=== PATIENT | male | born 1955 | race Caucasian/White ===

== ENCOUNTER 2021-12-12 09:07 | Emergency (ER) | payer BC ==
[~2021-12-12] VITALS: Ht 177.8 cm; Wt 122.4 kg
[2021-12-12 11:00] LABS: URINE BILIRUBIN - DIPSTICK NEGATIVE (NEGATIVE); URINE BLOOD DIPSTICK NEGATIVE (NEGATIVE); URINE COLOR YELLOW; URINE GLUCOSE - DIPSTICK NEGATIVE (NEGATIVE); URINE KETONE NEGATIVE (NEGATIVE); URINE LEUK ESTERASE NEGATIVE (NEGATIVE); URINE PH 5.5 (4.5-8.0); URINE PROTEIN - DIPSTICK NEGATIVE (NEG-TRACE); URINE UROBILINOGEN - DIPSTICK 0.2 E.U./dL (0.2)
[2021-12-12 11:02] LABS: HEMATOCRIT 45.5 % (39.0-50.0); HEMOGLOBIN 14.7 g/dl (14.0-18.0); IMMATURE GRANULOCYTES 0.2 % (0.0-5.0); MEAN CELL VOLUME 89.2 fL CALC (80.0-100.0); MEAN CORPUSCULAR HGB 28.8 pG CALC (26.0-32.0); MEAN CORPUSCULAR HGB CONC 32.3 g/dL CAL (32.0-36.0); NEUT# 10.6 thou/uL (1.82-7.42); RED BLOOD COUNT 5.1 mill/uL (4.70-6.10); RED CELL DISTRI WIDTH 13.2 % (11.5-15.5)
[2021-12-12 11:04] LABS: URINE NITRITE - DIPSTICK NEGATIVE (Negative)
[2021-12-12 11:12] LABS: ACT PARTIAL THROMBO TIME 26.8 SECONDS (20.0-32.5); PROTHROMBIN TIME 10.7 SECONDS (9.0-12.5)
[2021-12-12 11:14] LABS: ALBUMIN 4.6 g/dL (3.2-5.0); ALKALINE PHOSPHATASE 89 u/l (38-126); AMYLASE 65 u/l (30-110); ANION GAP 13 (6-22 (CALC)); BILIRUBIN, TOTAL 0.7 mg/dL (0.0-1.4); BUN 16 mg/dL (8-23); BUN/CREATININE RATIO 18 (12-20 (CALC)); CARBON DIOXIDE 29 mmol/l (22-30); CHLORIDE 100 mmol/l (95-108); CREATININE 0.9 mg/dL (0.7-1.3); GFR > 60 ML/MIN (>=60 (CALC)); GFR FOR AFR.AMER. > 60 ML/MIN (>=60 (CALC)); LIPASE 74 u/l (23-300); SGOT/AST 29 u/l (19-48); SODIUM 138 mmol/l (137-146); TOTAL PROTEIN 8.2 g/dL (6.3-8.2)
[2021-12-12] MEDS ORDERED: PROTONIX40 M2 PO (12:57)
== END 2021-12-12 13:01 | disposition home or self-care (01) | DRG 392 ==
LOC: ED 09:07
DX: R10.11 Right upper quadrant pain (principal); I10 Essential (primary) hypertension
CPT/HCPCS: Q9967

== ENCOUNTER 2022-04-16 19:53 | Inpatient (IN) | payer BC ==
[~2022-04-16] VITALS: Ht 177.8 cm; Wt 130.0 kg
[~2022-04-16 19:53] MED LIST: PROTONIX40 M2 PO
--- NOTE | 2022-04-16 20:27 | NUR ---
PT TRANSPORTED TO ER RM 14 VIA WC
[2022-04-16 21:14] LABS: HEMATOCRIT 51.1 % (39.0-50.0); HEMOGLOBIN 16.7 g/dl (14.0-18.0); IMMATURE GRANULOCYTES 0.2 % (0.0-5.0); MEAN CELL VOLUME 87.7 fL CALC (80.0-100.0); MEAN CORPUSCULAR HGB 28.6 pG CALC (26.0-32.0); MEAN CORPUSCULAR HGB CONC 32.7 g/dL CAL (32.0-36.0); NEUT# 12.23 thou/uL (1.82-7.42); RED BLOOD COUNT 5.83 mill/uL (4.70-6.10)
[2022-04-16 21:25] LABS: ALBUMIN 4.8 g/dL (3.2-5.0); ALKALINE PHOSPHATASE 119 u/l (38-126); AMYLASE 65 u/l (30-110); ANION GAP 19 (6-22 (CALC)); BILIRUBIN, TOTAL 0.9 mg/dL (0.0-1.4); BUN 20 mg/dL (8-23); BUN/CREATININE RATIO 19 (12-20 (CALC)); CARBON DIOXIDE 24 mmol/l (22-30); CHLORIDE 99 mmol/l (95-108); CREATININE 1.1 mg/dL (0.7-1.3); GFR FOR AFR.AMER. > 60 ML/MIN (>=60 (CALC)); GFR OTHER RACES > 60 ML/MIN (>=60 (CALC)); LIPASE 60 u/l (23-300); POTASSIUM 3.9 mmol/l (3.5-5.1); SGOT/AST 28 u/l (19-48); SODIUM 139 mmol/l (137-146); TOTAL PROTEIN 8.9 g/dL (6.3-8.2)
--- NOTE | 2022-04-16 21:27 | NUR ---
NAUSEA BUT NO VOMITING DENIED CONSTIPATION.W/P/D SKIN NO REBOUND TENDERNESS LAST FORMED BM 2 HRS PRIOR TO ARRIVAL TO ER
[2022-04-16 21:36] LABS: URINE BLOOD DIPSTICK NEGATIVE (NEGATIVE); URINE COLOR YELLOW; URINE GLUCOSE - DIPSTICK NEGATIVE (NEGATIVE); URINE KETONE TRACE mg/dL (NEGATIVE); URINE LEUK ESTERASE NEGATIVE (NEGATIVE); URINE PH 5.5 (4.5-8.0); URINE PROTEIN - DIPSTICK 100 mg/dL (NEG-TRACE); URINE SPECIFIC GRAVITY >=1.030; URINE UROBILINOGEN - DIPSTICK 0.2 E.U./dL (0.2)
[2022-04-16 21:37] LABS: MYOGLOBIN 59 ng/mL (0 - 121)
[2022-04-16 21:38] LABS: URINE BILIRUBIN - DIPSTICK SMALL (NEGATIVE); URINE NITRITE - DIPSTICK NEGATIVE (Negative)
[2022-04-16] MEDS ORDERED: LISINOP/HCTZ1 TA2 PO (21:51)
[2022-04-16] MEDS ORDERED: ATORVASTATIN CA40 MG PO (21:51)
[2022-04-16] MEDS ORDERED: ZOLOFT50 MG PO (21:52)
--- NOTE | 2022-04-16 22:34 | NUR ---
PT IS BETTER PAIN IS RESOLVING FEELING OF BEING GASEOUS AND BLOATED PT STATES.W/P/D SKIN HYDRATION FLUIDS BEGUN
[2022-04-17] VITALS (16 sets, daily range): BP systolic 105–165; BP diastolic 76–89
--- NOTE | 2022-04-17 00:33 | NUR ---
REMEDICATED FOR PAIN AND NAUSEA.W/P/D SKIN
--- NOTE | 2022-04-17 00:48 | NUR ---
REPORT RECEIVED FROM Andres PERDOMO RN
--- NOTE | 2022-04-17 00:48 | NUR ---
PHONE REPORT SILVIO FERNANDEZ [facility] NURSE
--- NOTE | 2022-04-17 00:55 | NUR ---
PT HAS NO N/V OR D THIS ER STAY PAIN IN RESOLVED. PT TRANSPORTED TO [facility] RM 278 VIA TELE AND STRETCHER IN STABLE CONDITION.
--- NOTE | 2022-04-17 01:05 | NUR ---
PATIENT ARRIVED ON FLOOR VIA STRETCHER ACCOMPANIED BY Robson PERDOMO RN. PATIENT AMBULATED TO BED WITH NO ASSITANCE. ASSESSMENT COMPLETED A THIS TIME. NORMAL HEART SOUNDS WITH TELE IN PLACE CURRENTLY SR 98. CLEAR LUNG SOUNDS. HYPO ACTIVE BOWEL SOUNDS. SKIN INTACT. #20 IN LAC FLUSHE DNA DPATENT, WITH NORMAL SALINE RUNNING AT 125 NO CURENT COMPLAINTS A THIS TIME. PLAN OF CARE REVIWED WITH PATIENT, CALL LIGHT AND BEDSIDE TABLE WITHN REACH.
--- NOTE | 2022-04-17 04:05 | NUR ---
PATIENT ASSISTED TO THE BATHROOM AT THIS TIME.
[2022-04-17 06:48] LABS: MEAN CELL VOLUME 87.8 fL CALC (80.0-100.0); MEAN CORPUSCULAR HGB 28.5 pG CALC (26.0-32.0); MEAN CORPUSCULAR HGB CONC 32.5 g/dL CAL (32.0-36.0); RED BLOOD COUNT 5.01 mill/uL (4.70-6.10); RED CELL DISTRI WIDTH 13.1 % (11.5-15.5)
[2022-04-17 06:51] LABS: HEMOGLOBIN 14.3 g/dl (14.0-18.0)
[2022-04-17 06:58] LABS: ANION GAP 13 (6-22 (CALC)); BUN 18 mg/dL (8-23); BUN/CREATININE RATIO 20 (12-20 (CALC)); CARBON DIOXIDE 23 mmol/l (22-30); CHLORIDE 106 mmol/l (95-108); CREATININE 0.9 mg/dL (0.7-1.3); GFR FOR AFR.AMER. > 60 ML/MIN (>=60 (CALC)); GFR OTHER RACES > 60 ML/MIN (>=60 (CALC)); POTASSIUM 3.6 mmol/l (3.5-5.1); SODIUM 139 mmol/l (137-146)
--- NOTE | 2022-04-17 09:07 | NUR ---
PT RESTING IN BED A&O X3. STATES PAIN IN ABD, CRAMPING 03/05. MEDICATED. SEE EMAR. PT NPO. PT EDUCATED ON PAIN MEDICATION. ASSESSMENT COMPLETED. BOWEL SOUNDS ACTIVE X4. ABD IS FIRM, NON TENDER. PT ON TELE MONITOR CONTINOUS MONITORING PER ED. IVF INFUSING PER EMAR. IV LAC 20G FLUSHED. PATENT. PT STATES LAST BM: 04/16/22. FALL/SAFTEY PRECAUTION IN PLACE. CALL LIGHT WITHIN REACH
--- NOTE | 2022-04-17 12:09 | NUR ---
PT IN XRAY
--- NOTE | 2022-04-17 14:50 | NUR ---
SURGEON AT BEDSIDE
--- NOTE | 2022-04-17 15:01 | NUR ---
AT BEDSIDE WITH PATIENT. PLACED NG TUBE IN RIGHT NARIS TO CONT SUCTION. PATIENT BEING TAKEN TO OR. ORDERS GIVEN TO D/C CT, PER .
--- NOTE | 2022-04-17 15:08 | NUR ---
OR NURSE TRANSPORTED PT TO OR FOR PROCEDURE. NG TUBE INTACT. FAMILY MEMBER AT BEDSIDE. ANTIBIOTIC MEDICATION GIVEN SEE EMAR. FALL/SAFTEY PRECAUTION IN PLACE.
--- NOTE | 2022-04-17 17:39 | NUR ---
OR REPORT CALL PT TRANSFERRED TO ICU FOR POST OBS.
[2022-04-17 18:08] LABS: HEMATOCRIT 46.2 % (39.0-50.0); HEMOGLOBIN 14.6 g/dl (14.0-18.0); IMMATURE GRANULOCYTES 0.2 % (0.0-5.0); MEAN CELL VOLUME 91.1 fL CALC (80.0-100.0); MEAN CORPUSCULAR HGB 28.8 pG CALC (26.0-32.0); MEAN CORPUSCULAR HGB CONC 31.6 g/dL CAL (32.0-36.0); NEUT# 13.56 thou/uL (1.82-7.42); RED BLOOD COUNT 5.07 mill/uL (4.70-6.10); RED CELL DISTRI WIDTH 13.5 % (11.5-15.5)
[2022-04-17 18:19] LABS: ALKALINE PHOSPHATASE 76 u/l (38-126); ANION GAP 14 (6-22 (CALC)); BILIRUBIN, TOTAL 0.7 mg/dL (0.0-1.4); BUN 21 mg/dL (8-23); BUN/CREATININE RATIO 21 (12-20 (CALC)); CARBON DIOXIDE 22 mmol/l (22-30); CHLORIDE 110 mmol/l (95-108); GFR FOR AFR.AMER. > 60 ML/MIN (>=60 (CALC)); GFR OTHER RACES > 60 ML/MIN (>=60 (CALC)); POTASSIUM 3.9 mmol/l (3.5-5.1); SGOT/AST 22 u/l (19-48); SODIUM 143 mmol/l (137-146)
[2022-04-17 18:32] LABS: ALBUMIN 3.6 g/dL (3.2-5.0); TOTAL PROTEIN 6.7 g/dL (6.3-8.2)
--- NOTE | 2022-04-17 21:31 | NUR ---
ASSESSMENT COMPLETED. LUNG SOUNDS CLEAR. BOWEL SOUNDS ACTIVE IN RLQ, RUQ, AND LUQ, BOWEL SOUNDS ABSENT IN LLQ. C/O PAIN TO THE ABDOMEN 03/05, 0.5 MG DILAUDID GIVEN, PT STATES THE PAIN IS BETTER. UNABLE TO VISUALIZE INCISION R/T DRESSING. DRESSINGS CLEAN, DRY, AND INTACT. ROWAN DRAINING BLOODY OUTPUT, 95 ML TOTAL AT THIS TIME. TRAYLOR PATENT AND DRAINING PALE YELLOW URINE, 92 ML TOTAL AT THIS TIME. NG TO LOW CONTINUOUS SUCTIONS, 50 ML BROWN OUTPUT AT THIS TIME. SAFETY PRECAUTIONS IN PLACE. SCDS ON.
--- NOTE | 2022-04-17 22:15 | NUR ---
ANOTHER 0.5 MG DILAUDID GIVEN AROUND 2150. PT STATES THAT IT DID HELP THE PAIN. PT RATES PAIN 3/10 AT THIS TIME.
[2022-04-18] VITALS (40 sets, daily range): BP systolic 11–145; BP diastolic 52–100
--- NOTE | 2022-04-18 02:07 | NUR ---
PT RESTING COMFORTABLY AT THIS TIME. MINIMAL OUTPUT FROM NGT, 50 ML TOTAL. ROWAN DRAINAGE HAS SLOWED DOWN, 105 ML TOTAL. URINE OUTPUT TOTAL AT THIS TIME 270 ML.
--- NOTE | 2022-04-18 03:16 | NUR ---
CALLED AND WAS GIVEN AN UPDATE ON PT CONDITION.
[2022-04-18 03:37] LABS: HEMATOCRIT 43.5 % (39.0-50.0); HEMOGLOBIN 13.8 g/dl (14.0-18.0)
--- NOTE | 2022-04-18 05:46 | NUR ---
BLADDER SCAN COMPLETED R/T PT COMPLAINT OF TENDERNESS OVER THE BLADDER AND LOW URINE OUTPUT. BLADDER SCAN SHOWED 000 ML. TOTAL URINE OUTPUT AT THIS TIME 325 ML.
[2022-04-18 06:31] LABS: ANION GAP 11 (6-22 (CALC)); BUN 22 mg/dL (8-23); BUN/CREATININE RATIO 20 (12-20 (CALC)); CARBON DIOXIDE 23 mmol/l (22-30); CHLORIDE 113 mmol/l (95-108); CREATININE 1.1 mg/dL (0.7-1.3); GFR FOR AFR.AMER. > 60 ML/MIN (>=60 (CALC)); GFR OTHER RACES > 60 ML/MIN (>=60 (CALC)); MAGNESIUM 1.8 mg/dL (1.6-2.3); POTASSIUM 3.9 mmol/l (3.5-5.1); SODIUM 144 mmol/l (137-146)
[2022-04-18 06:53] LABS: HEMATOCRIT 41.4 % (39.0-50.0); HEMOGLOBIN 13.1 g/dl (14.0-18.0); IMMATURE GRANULOCYTES 0.2 % (0.0-5.0); MEAN CORPUSCULAR HGB 28.8 pG CALC (26.0-32.0); MEAN CORPUSCULAR HGB CONC 31.6 g/dL CAL (32.0-36.0); NEUT# 7.16 thou/uL (1.82-7.42); RED BLOOD COUNT 4.55 mill/uL (4.70-6.10); RED CELL DISTRI WIDTH 13.7 % (11.5-15.5)
--- NOTE | 2022-04-18 08:46 | NUR ---
Removed folet catheter, patient tolerated well, 100cc clear yellow urine in bag upon removal.
--- NOTE | 2022-04-18 08:48 | NUR ---
koffi drain emptied 80cc sanguineous fluid.
--- NOTE | 2022-04-18 09:14 | NUR ---
Dr Richards contacted for clarification of fluid orders.
--- NOTE | 2022-04-18 09:48 | NUR ---
Notified dr Kitchen of increased koffi drainage. new order received to repeat h&h at 1200.
[2022-04-18 11:53] LABS: HEMATOCRIT 39.1 % (39.0-50.0); HEMOGLOBIN 12.4 g/dl (14.0-18.0)
--- NOTE | 2022-04-18 11:58 | NUR ---
Results of h&h returned, physician notified of new lab values. Awaiting new orders if any forthcoming.
[2022-04-18] MEDS ORDERED: ALBUTEROL108 MCG/AC IN (14:42)
[2022-04-18 19:06] LABS: HEMATOCRIT 36.7 % (39.0-50.0); HEMOGLOBIN 11.4 g/dl (14.0-18.0)
--- NOTE | 2022-04-18 21:17 | NUR ---
PER PT REQUEST, PT ASSISTED OUT OF BED AND UP TO CHAIR. VITAL SIGNS REMAIN STABLE. PT STATES MINIMAL PAIN AT THIS TIME.
--- NOTE | 2022-04-18 22:35 | NUR ---
PT ASSISTED BACK TO BED.
[2022-04-19] VITALS (18 sets, daily range): BP systolic 112–141; BP diastolic 57–83
--- NOTE | 2022-04-19 02:50 | NUR ---
RESPIRATORY CALLED R/T PT HAVING FREQUENT WITNESSED APNEIC EPISODES WHILE SLEEPING. O2 DROPPING LOW 58% ON 5 L N/C. O2 SATS HAVE BEEN 95% OR HIGHER ON 2L WHEN AWAKE.
--- NOTE | 2022-04-19 05:27 | NUR ---
VSS ON VENTURI MASK. TOTAL URINE OUTPUT 250 ML. ROWAN OUTPUT 30 ML. NGT OUTPUT 300 ML.
[2022-04-19 05:47] LABS: HEMATOCRIT 33.7 % (39.0-50.0); HEMOGLOBIN 10.5 g/dl (14.0-18.0); IMMATURE GRANULOCYTES 0.3 % (0.0-5.0); MEAN CELL VOLUME 93.9 fL CALC (80.0-100.0); MEAN CORPUSCULAR HGB 29.2 pG CALC (26.0-32.0); MEAN CORPUSCULAR HGB CONC 31.2 g/dL CAL (32.0-36.0); NEUT# 6.01 thou/uL (1.82-7.42); RED BLOOD COUNT 3.59 mill/uL (4.70-6.10); RED CELL DISTRI WIDTH 13.9 % (11.5-15.5)
[2022-04-19 05:55] LABS: ALKALINE PHOSPHATASE 46 u/l (38-126); ANION GAP 12 (6-22 (CALC)); BILIRUBIN, TOTAL 0.9 mg/dL (0.0-1.4); BUN 22 mg/dL (8-23); BUN/CREATININE RATIO 22 (12-20 (CALC)); CARBON DIOXIDE 22 mmol/l (22-30); CHLORIDE 110 mmol/l (95-108); GFR FOR AFR.AMER. > 60 ML/MIN (>=60 (CALC)); GFR OTHER RACES > 60 ML/MIN (>=60 (CALC)); MAGNESIUM 2.1 mg/dL (1.6-2.3); SGOT/AST 21 u/l (19-48); SODIUM 140 mmol/l (137-146)
[2022-04-19 05:59] LABS: ALBUMIN 2.8 g/dL (3.2-5.0); TOTAL PROTEIN 5.3 g/dL (6.3-8.2)
--- NOTE | 2022-04-19 09:07 | NUR ---
Spoke with Dr Carr about patients decreasing h&h levels, he recommends that we hold the lovenox for the patient and he will consult with Dr Kitchen regarding the patient status, patient awake and alert, c/o minimal pain at this time, no s/s of distres snoted, respirations even and unlabored on room air, patient wishing to try and stay off the supplemental o2 as long as he can tolerate today as he does not wear oxygen at home. PT at bedside assisting patient to the bedside recliner chair for pt therapy.
--- NOTE | 2022-04-19 09:54 | NUR ---
Patient out of bed and walking on unit with pt, patient ambulating without asistance, gait steady, c/o small amount of pain but states that it is bareable when ambulating.
--- NOTE | 2022-04-19 12:23 | NUR ---
Surgeon at bedside, discussing continued treatment with patient, ng/koffi to stay in place at this time, ice chps only, may ambulate with stand by assist in the room, patient to transfer to med/surg for continued treatment.
--- NOTE | 2022-04-19 14:08 | NUR ---
RECEIVE REPORT PATIENT FROM ICU. REPORT FROM [facility] ICU NURSE. PT ALERT AND ORIENTED X3. ACCOMPANIE BY FAMILY MEMBER. PATIENT WITH NGT IN THE LEFT NOSTRIL. WHICH IS CONNECTED TO INTERMITTENT SUCTION ACCORDING MEDICAL ORDER.PATIENT IS EDUCATED ABOUD MEDICATIONS AND NURSING PLAN. PT AND FAMILY MEMBER REFER UNDERSTAND. SAFETY AND FALL PRECAUTIONS IN PLACE. CALL LIGHT WITHIN REACH.
--- NOTE | 2022-04-19 16:01 | NUR ---
PATIENT RESTING IN BED. STABLE AT THIS TIME.
--- NOTE | 2022-04-19 19:10 | NUR ---
REPORT RECEIVED FROM Kirsten CEBALLOS RN
--- NOTE | 2022-04-19 21:40 | NUR ---
PATIENT WITH ABDOMINAL BINDER, REFUSES TO TAKE IF OFF A THIS TIME. STATES HIS DRESSING CHANGE WAS LUIZ TODAY AND IT HELPS WIHT THE PAIN. SCDS IN PLACE. NG TUBE TO LOW CONTINOUS SUCCION.
[2022-04-20] VITALS (9 sets, daily range): BP systolic 103–168; BP diastolic 58–86
--- NOTE | 2022-04-20 03:50 | NUR ---
FINANCIAL AUDITOR Aurelio BARRY IN TO OBTAIN MORNING LABS.
[2022-04-20 05:52] LABS: HEMATOCRIT 32.6 % (39.0-50.0); HEMOGLOBIN 10.3 g/dl (14.0-18.0); IMMATURE GRANULOCYTES 0.5 % (0.0-5.0); MEAN CELL VOLUME 92.1 fL CALC (80.0-100.0); MEAN CORPUSCULAR HGB 29.1 pG CALC (26.0-32.0); MEAN CORPUSCULAR HGB CONC 31.6 g/dL CAL (32.0-36.0); NEUT# 4.86 thou/uL (1.82-7.42); RED BLOOD COUNT 3.54 mill/uL (4.70-6.10); RED CELL DISTRI WIDTH 13.7 % (11.5-15.5)
--- NOTE | 2022-04-20 06:02 | NUR ---
ANTIBIOTIC HUNG AT THIS TIME. #20 IN RAC INFILTRATED AND REMOVED
[2022-04-20 07:24] LABS: ALKALINE PHOSPHATASE 58 u/l (38-126); ANION GAP 8 (6-22 (CALC)); BUN 16 mg/dL (8-23); BUN/CREATININE RATIO 16 (12-20 (CALC)); CARBON DIOXIDE 25 mmol/l (22-30); CHLORIDE 111 mmol/l (95-108); GFR FOR AFR.AMER. > 60 ML/MIN (>=60 (CALC)); GFR OTHER RACES > 60 ML/MIN (>=60 (CALC)); MAGNESIUM 2.1 mg/dL (1.6-2.3); POTASSIUM 3.7 mmol/l (3.5-5.1); SGOT/AST 17 u/l (19-48); SODIUM 141 mmol/l (137-146); TOTAL PROTEIN 5.9 g/dL (6.3-8.2)
[2022-04-20 07:25] LABS: BILIRUBIN, TOTAL 0.5 mg/dL (0.0-1.4)
--- NOTE | 2022-04-20 08:32 | NUR ---
RECIEVED REPORT. PT RESTING IN SEMI FOWLERS POSITION. PT A/OX3. ASSESSMENT COMPLETED. RESPIRATIONS EVEN AND UNLBAORED ON ROOM AIR. LUNG SOUNDS CLEAR. HEART RHYTHM NORMAL. BOWEL SOUNDS ACTIVE. PT REPORTS LOOSE BROWN BM THIS MORNING.#20G LAC INFUSING WITH IVF PER ORDER, SITE PATENT. NG TUBE TO LEFT NARE NOTED, CONT LOW SUCTION.ROWAN DRAIN TO LEFT ABD TO BE EMPTIED, BLOOD OUTPUT NOTED.ABD DRESSING REMAINS CDI WITH ABD BINDER . PT COMPLAINS OF 5/10 ABD PAIN. PT TO BE MEDICATED PER EMAR. PT DENIES OF ANY ADDITIONAL NEEDS AT THIS TIME. ALL SAFETY PRECAUTIONS ARE IN PLACE WITH CALL LIGHT IN REACH.
--- NOTE | 2022-04-20 09:00 | NUR ---
PT WALKING HALLS WITH AT SIDE. STEADY GAIT NOTED.
--- NOTE | 2022-04-20 11:55 | NUR ---
NG TUBE REMOVED AT THIS TIME. PT TOLERATED WELL. RESPIRATIONS EVEN AND UNLABORED. #20G LAC REMAINS IN PLACE. ABD DRESSING CDI WITH BINDER IN PLACE.45 OF BLOOD DRAINAGE NOTED TO ROWAN DRAIN. BULB TO SUCTION. PT DENIES OF ANY ADDITIONAL NEEDS AT THIS TIME. ALL SAFTEY PRECAUTIONS ARE IN PLACE WITH CALL LIGHT IN REACH.
--- NOTE | 2022-04-20 14:30 | NUR ---
PT DRESSING CHANGED. SKIN APPEARS HEALTHY WITH NO SIGNS OF INFECTION. PT TOLERATED DRESSING CHANGE.
--- NOTE | 2022-04-20 15:32 | NUR ---
Pt sitting on edge of bed, stated he has been walking in room and corey (confirmed by ). Pt stated he will walk later after pain med takes effect. No treatment given at this time. Will continue to monitior, please encourage OOB and walking in hallways.
--- NOTE | 2022-04-20 16:48 | NUR ---
PT RESTING IN SEMI FOWLERS POSITION, WATCHING TV WITH AT BED SIDE. BREATHING REMAINS EVEN AND UNLABORED. NO SIGNS OF DISTRESS OR DISCOMFORT. INCENTIVE SPIROMETRY AT BEDSIDE PT ENCOURAGED TO USE IT. ALL SAFETY PRECAUTIONS IN PLACE. CALL LIGHT IN REACH. IV SITE SALINE LOCKED.
--- NOTE | 2022-04-20 20:00 | NUR ---
PT IN BED AWAKE, NO DISTRESS NOTED, PT CIWA SCORE 6, PT SLIGHT TREMOR AND MILD ANXIETY, PT STATES NO PAIN AND IS FEELING BETTER, PT BED ALARM IS ON AND IN LOW POSITION, CALL LIGHT IS IN REACH
--- NOTE | 2022-04-20 20:00 | NUR ---
PT IN BED, PT STATES PAIN 03/05, GAVE PAIN MED, EMPTIED ROWAN DRAIN 75 CC BRIGHT RED DRAINAGE, DRESSINGS CLEAN DRY AND INTACT, BED IN LOW POSION CALL LIGHT IN REACH, WILL CONTINUE TO MONITOR
--- NOTE | 2022-04-20 20:30 | NUR ---
PT STATES PAIN NOW 0/10, WILL CONTINUE TO MONITOR
[2022-04-21] VITALS (12 sets, daily range): BP systolic 107–176; BP diastolic 60–91
--- NOTE | 2022-04-21 04:52 | NUR ---
PT UP IN CHAIR AWAKE, PT STATES NO PAIN, ROWAN DRAIN EMPTIED, PT HAD THREE BOWEL MOVEMENTS OVERNIGHT AND PASSING GAS, NO OVERNIGHT EVENTS, CALL LIGHT IN REACH
[2022-04-21 05:34] LABS: HEMATOCRIT 34.4 % (39.0-50.0); IMMATURE GRANULOCYTES 0.7 % (0.0-5.0); MEAN CORPUSCULAR HGB 29.1 pG CALC (26.0-32.0); NEUT# 4.45 thou/uL (1.82-7.42); RED BLOOD COUNT 3.78 mill/uL (4.70-6.10); RED CELL DISTRI WIDTH 13.5 % (11.5-15.5)
[2022-04-21 05:56] LABS: ALBUMIN 2.8 g/dL (3.2-5.0); ALKALINE PHOSPHATASE 54 u/l (38-126); BILIRUBIN, TOTAL 0.5 mg/dL (0.0-1.4); BUN 10 mg/dL (8-23); BUN/CREATININE RATIO 12 (12-20 (CALC)); CARBON DIOXIDE 24 mmol/l (22-30); CHLORIDE 110 mmol/l (95-108); CREATININE 0.9 mg/dL (0.7-1.3); GFR FOR AFR.AMER. > 60 ML/MIN (>=60 (CALC)); GFR OTHER RACES > 60 ML/MIN (>=60 (CALC)); MAGNESIUM 1.9 mg/dL (1.6-2.3); SGOT/AST 17 u/l (19-48); SODIUM 140 mmol/l (137-146); TOTAL PROTEIN 5.4 g/dL (6.3-8.2)
[2022-04-21 05:57] LABS: ANION GAP 10 (6-22 (CALC)); POTASSIUM 3.9 mmol/l (3.5-5.1)
--- NOTE | 2022-04-21 08:00 | NUR ---
PT RESTING IN BED. ALERT AND ORIENTATED X4. PERRL. PT FACE IS SYMMETRICAL. UPPER EXTREMITIES ARE STRONG, NO DRIFT NOTED. BREATHING IS EVEN AND UNLABORED. LUNG SOUNDS CLEAR BILATERALLY. HEART SOUNDS NORMAL. ACTIVE BOWEL SOUNDS X4. LOWER EXTREMITIES STRONG, NO DRIFT NOTED. BELLY BINDER IN PLACE. SURGICAL INCISION APPEARS HEALTHY, NO SIGNS OF INFECTION. IV SITE PATENT, SALINE LOCKED. CALL LIGHT IN REACH. ALL SAFETY PRECAUTIONS IN PLACE.
--- NOTE | 2022-04-21 08:00 | NUR ---
PT RESTING IN BED. BREATHING IS EVEN AND UNLABORED. PT ABLE TO HOLD A CONVERSATION APPROPRIATELY. ALERT AND ORIENTATED X4. PT BREATHING EVEN AND UNLABORED. PT REPORTS SLIGHT DISCOMFORT IN BOWELS BUT NO BOWEL MOVEMENT. ALL EXTREMITIES ARE STRONG, NO DRIFT NOTED. SKIN IS WARM AND DRY. CALL LIGHT IN REACH. ALL SAFETY PRECAUTIONS IN PLACE AT THIS TIME.
--- NOTE | 2022-04-21 10:19 | NUR ---
Attempted treatment this am. He was standing in room, requesting nurse to come and see something in BR. He reported up to BR >3 times last pm. Pt reported getting up and moving around. No treatment required at this time.
--- NOTE | 2022-04-21 11:30 | NUR ---
PT ROWAN DRAIN REMOVED. PT TOLERATED WELL. PT BREATHING REMAINED EVEN AND UNLABORED. PT DENIES ANY OTHER NEEDS AT THIS TIME. ALL SAFETY PRECAUTIONS IN PLACE AT THIS TIME.
--- NOTE | 2022-04-21 12:00 | NUR ---
PT UP IN BED, WAITING FOR LUNCH. ALERT AND ORIENTATED X4. AT BEDSIDE. BREATHING IS EVEN AND NON LABORED. PT DENIES ANY NEEDS AT THIS TIME. ALL SAGETY PRECAUTIONS IN PLACE AT THIS TIME.
--- NOTE | 2022-04-21 17:41 | NUR ---
PT IN RECLINER WITH AT BEDSIDE. PT REMAINS ALERT AND ORIENTATED COMPLETELY. C/O PAIN AT A 5, MEDICATED PER ORDERS. STATES PT HAD BOWEL MOVEMENT A FEW MINUTES BEFORE ENTRY. PT BREATHING REMAINS EVEN AND UNLABORED. ENCOURAGED TO USE THEIR INCENTIVE SPIROMETRY. IV SITE PATENT. CALL LIGHT IN REACH. ALL SAFETY PRECAUTIONS IN PLACE AT THIS TIME.
--- NOTE | 2022-04-21 19:45 | NUR ---
PATIENT SITTING UP IN CHAIR. AOX3. NO DISTRESS NOTED. ABX INFUSING. PATIENT HAS NO COMPLAINTS AT THIS TIME. ABD DRSING CLEAN, DRY AND INTACT AND SECURED WITH ABD BINDER. ASSESSMENT COMPLETED. FALL PRECAUTIONS IN PLACE. CALL FERGUSON WITHIN REACH.
[2022-04-22 04:02] VITALS: BP 151/74
--- NOTE | 2022-04-22 04:50 | NUR ---
PATIENT C/O SORENESS AND DISCOMFORT IN AB RATED 6/10 ON PAIN SCALE; REQUESTING PAIN MEDICATION. DILAUDID ADMINISTERED PER MED SCHEDULE. FALL PRECAUTIONS IN PLACE. CALL FERGUSON WITHIN REACH.
[2022-04-22 06:37] VITALS: BP 144/81
--- NOTE | 2022-04-22 07:00 | NUR ---
REPORT RECEIVED FROM GANG PUNCH OPERATORCONSUMER BANKER
--- NOTE | 2022-04-22 07:44 | NUR ---
PT SITTING ON SIDE OF BED UPON ENTERING ROOM. TELE MONITOR IN PLACE, CONTINOUS MONITORING PER ED. IV 22G RAC. FLUSHED. PT STATES NO PAIN. UPDATED PT ON CURRENT POC. ASSESSMENT ALLOWED. PT A&OX3. BREATHING EVEN AND UNLABORED. BOWEL SOUNDS ACTIVE X4. ABD DRESSING CDI. ABD BINDER READJUSTED. PT STATES ABLE TO PASS GAS AND BOWEL MOVEMENTS. EDEMA NOTED LOWER FEET BILATERALLY 1+. SCDS ENCOURAGED. FALL/SAFTEY PRECAUTION IN PLACE. CALL LIGHT WITHIN REACH
[2022-04-22] MEDS ORDERED: PERCOCET 5/321 COMBO PO (10:29)
[2022-04-22] MEDS ORDERED: SIMETHICONE80 M2 PO (10:31)
[2022-04-22 10:41] VITALS: BP 139/75
[2022-04-22] MEDS ORDERED: ONDANSETRON4 MG PO (11:50)
--- NOTE | 2022-04-22 12:09 | NUR ---
PT RESTING IN BED. STATES PAIN SUBSIDED WITH PAIN MEDICATION. IV PATENT. INFUSING MEDICATION. SEE EMAR. ABD IN PLACE. SCD IN PLACE. TELE MONITOR IN PLACE, CONTINOUS MONITORING PER ED. FALL/SAFTEY PRECAUTION IN PLACE. CALL LIGHT WITHIN REACH.
[2022-04-22 14:12] VITALS: BP 136/77
--- NOTE | 2022-04-22 14:55 | NUR ---
Discharge instructions given. Patient verbalizes understanding of same. Discharged in stable condition via Wheelchair to Home with staff. All belongings sent with pt.
== END 2022-04-22 14:55 | disposition home or self-care (01) | DRG 336 ==
LOC: ED 19:53 → ED-I 23:12 → ED 23:22 → MS2 23:23 → ICU 04-17 08:16 → MS2 04-19 14:01
PROVIDERS: Emergency Medicine; Nurse Practitioner; Surgery; ADMIT Internal Medicine; ATTEND Internal Medicine
PROC: 0DNU4ZZ Release Omentum, Percutaneous Endoscopic Approach (ICD-10-PCS; principal; 2022-04-17)
PROC: 0DNA0ZZ Release Jejunum, Open Approach (ICD-10-PCS; 2022-04-17)
PROC: 0DN80ZZ Release Small Intestine, Open Approach (ICD-10-PCS; 2022-04-17)
PROC: 0D980ZZ Drainage of Small Intestine, Open Approach (ICD-10-PCS; 2022-04-17)
DX: K56.50 Intestinal adhesions [bands], unspecified as to partial versus complete obstruction (principal); D62 Acute posthemorrhagic anemia; I10 Essential (primary) hypertension; E78.00 Pure hypercholesterolemia, unspecified; F41.9 Anxiety disorder, unspecified; F32.A Depression, unspecified; Z20.822 Contact with and (suspected) exposure to COVID-19
CPT/HCPCS: J1650; J1756; Q9967; S0164

== ENCOUNTER 2022-12-19 06:53 | Day surgery (SDC) | payer MEDICARE, BC ==
[~2022-12-19] VITALS: Ht 177.8 cm; Wt 117.9 kg
[~2022-12-19 06:53] MED LIST changes: +ALBUTEROL108 MCG/AC IN; +ATORVASTATIN CA40 MG PO; +LISINOP/HCTZ1 TA2 PO; +ONDANSETRON4 MG PO; +PERCOCET 5/321 COMBO PO; +SIMETHICONE80 M2 PO; +ZOLOFT50 MG PO
[2022-12-19 09:25] VITALS: BP 115/77
== END 2022-12-19 09:30 | disposition home or self-care (01) ==
LOC: ENDO 06:53
PROVIDERS: ATTEND Surgery
PROC: 0DBP8ZX Excision of Rectum, Via Natural or Artificial Opening Endoscopic, Diagnostic (ICD-10-PCS; principal; 2022-12-19)
DX: Z12.11 Encounter for screening for malignant neoplasm of colon (principal); K62.1 Rectal polyp; K64.8 Other hemorrhoids; I10 Essential (primary) hypertension; E78.00 Pure hypercholesterolemia, unspecified